=== PATIENT | male | born 1945 | race Caucasian/White ===

== ENCOUNTER 2016-12-10 12:57 | Emergency (ER) | payer OTHER ==
[2016-12-10 13:17] VITALS: BP 139/84; PULSE 70; TEMP 97.5; BMI 26.8
[2016-12-10] MEDS ORDERED: HYDROmorphone HCL 2 MG TABLET PO ONE (13:40)
--- NOTE | 2016-12-10 13:50 | PDOC ---
History of Present Illness - General Chief Complaint: Pain Stated Complaint: RIGHT KNEE & FOOT PAIN Time Seen by Provider: 12/10/16 13:02 History Source: Patient Exam Limitations: No Limitations - History of Present Illness Initial Comments: 12/10/16 13:48 71 yo male with h/o autoimmune arthritis currently on mtx ( recent steroids taper one month ago) here with /co worsening right knee pain. no trauma. no f/c no cp no sob. no rash. states last 2 - 3 days knee pain has become acutely worse to point of being unable to walk, walking wtih crutches. notes right knee and foot pain near ankle. min joint swelling. no hip pain. no new neck or back pain. also c/o tingling sensation right hand index, middle, and thumb. just finished steroid taper one week ago. was treated for lyme disase one year ago. follows with Chris Anthony rheumatologis. Past History - Past Medical History Allergies/Adverse Reactions: Allergies Allergy/AdvReac Type Severity Reaction Status Date / Time No Known Allergies Allergy Verified 12/10/16 13:10 Home Medications: Ambulatory Orders Hydromorphone HCl [Dilaudid] 2 mg PO TID PRN #10 tablet MDD 3 12/10/16 Methotrexate Sodium [Methotrexate] 2.5 mg PO MOTH 12/10/16 Pramipexole Dihydrochloride [Mirapex -] 0.5 mg PO HS 12/10/16 Prednisone 10 mg PO DAILY #8 tablet 12/10/16 Secukinumab [Cosentyx Pen] 150 mg SQ ASDIR 12/10/16 HTN: Yes Other medical history: ARTHRITIS - Immunization History TDAP Vaccination: Yes (12/07/2016) - Psycho/Social/Smoking Cessation Hx Anxiety: No Suicidal Ideation: No Smoking Status: No Smoking History: Never smoked Have you smoked in the past 12 months: No Number of Cigarettes Smoked Daily: 0 Cigars Per Day: 0 Hx Alcohol Use: No Drug/Substance Use Hx: No Substance Use Type: None Review of Systems - Review of Systems Constitutional: No: Chills, Diaphoresis, Fever HEENTM: No: Eye Pain, Blurred Vision Respiratory: No: Orthopnea, Shortness of Breath Cardiac (ROS): No: Chest Pain, Edema : No: Burning Musculoskeletal: Yes: Joint Pain, Joint Swelling, Joint Stiffness. No: Back Pain Integumentary: No: Bruising, Change in Color Neurological: No: Headache, Numbness All Other Systems: Reviewed and Negative *Physical Exam - Vital Signs Last Vital Signs Temp Pulse Resp BP Pulse Ox 97.5 F L 70 15 139/84 99 12/10/16 12:59 12/10/16 12:59 12/10/16 12:59 12/10/16 12:59 12/10/16 12:59 - Physical Exam General Appearance: Yes: Appropriately Dressed. No: Apparent Distress HEENT: positive: EOMI, SARAH Neck: positive: Trachea midline. negative: Tender Respiratory/Chest: positive: Lungs Clear, Normal Breath Sounds Cardiovascular: positive: Regular Rhythm, Regular Rate, S1, S2. negative: Edema , JVD, Murmur Vascular Pulses: Dorsalis-Pedis (R): 2+, Doralis-Pedis (L): 2+ Gastrointestinal/Abdominal: positive: Normal Bowel Sounds, Flat, Soft. negative : Tender Musculoskeletal: positive: Normal Inspection, Decreased Range of Motion. negative: CVA Tenderness, Vertebral Tenderness Extremity: positive: Normal Capillary Refill, Normal Inspection, Normal Range of Motion (right knee with flexion to 45 deg with pain, no effusion, no erythema or warmth. right ankle with lateral TFL tenderness, min swelling. no erythema FROM. 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 differential autoimmune flair, infection, .l right wrist with classic carpal tunnel syndrom. recommend wrist splint for right wrist. followup hand surgeon. will check cbc esr crp cmp to eval for possibility of infection. joint clinically not septic. unable to test for acute lyme and ab already positive. will attempt to discuss with solar consultant regarding meds, and outpt followup, pain contorl. 12/10/16 15:44 d/w covering DR Ramos for pt solar consultant Dr. Chris Anthony [phone]. can see pt this week. recommend re initiating steroids at dose of 10 mg daily , and ok for pain control until then. also accidently spoke with solar consultant dr. Lucia Anthony ( who has seen him in the past and treats his ) who had similar recommendation, happy to see patient if chose to resume care locally. eva dc on prednisone 10 mg , and dilaudid 2 mg prn. #10 *DC/Admit/Observation/Transfer Diagnosis at time of Disposition: Arthralgia - Discharge Dispostion Disposition: HOME Condition at time of disposition: Good Admit: No - Prescriptions Prescriptions: Hydromorphone HCl [Dilaudid] 2 mg PO TID PRN #10 tablet MDD 3 PRN Reason: Pain Prednisone 10 mg PO DAILY #8 tablet - Patient Instructions Printed Discharge Instructions: Arthritis (Alternative Therapy), Psoriatic Arthritis, Carpal Tunnel Syndrome Additional Instructions: take prednisone 10 mg daily until you follow up wtih Dr. Chris Anthony. take dilaudid 2 mg every 8 hours as needed for sever pain. return for fever, worsening swelling or any concerns. you should also wear a velcrox wrist splint on your right wrist to help wtih carpal tunnel syndrome. you can wear at night.
[2016-12-10 14:22] LABS: ALBUMIN 3.6 g/dl (3.5-5.0); ALK PHOS 68 U/L (32-92); BILIRUBIN,TOTAL 0.8 mg/dl (0.2-1.0); CALCIUM 8.3 mg/dl (8.4-10.2); CO2 25 mmol/L (22-28); CREATININE 1.4 mg/dl (0.6-1.3); GLUCOSE,RANDOM 163 mg/dl (74-106); SGOT/AST 23 U/L (10-42); SGPT/ALT 19 U/L (10-40); TOT PROT 5.6 g/dl (6.4-8.3)
[2016-12-10 14:32] LABS: ANION GAP 6 (8-16)
[2016-12-10 14:34] LABS: BASOPHIL 0.4 % (0-2.0); EOSINOPHIL 2.7 % (0-4.5); MCH 30.4 pg (25.7-33.7); MCHC 33.6 g/dl (32.0-35.9); MEAN CELL VOLUME 90.4 fl (80-96); MEAN PLT VOLUME 10.4 fl (7.5-11.1); NEUTROPHILS 69.2 % (42.8-82.8); PLATELET COUNT 159 K/MM3 (134-434); WHITE BLOOD COUNT 11.6 K/mm3 (4.0-10.8)
[2016-12-10] MEDS ORDERED: predniSONE 10 MG TABLET (UD) PO ONE (15:43)
[2016-12-10] MEDS ORDERED: predniSONE 10 MG TABLET (UD) ONE (15:46)
[2016-12-10 16:23] LABS: ERYTHROCYTE SEDIMENTATION RATE 20 mm/hr (0-20)
[2016-12-10 18:41] LABS: C-REACTIVE PROTEIN 1.1 MG/DL (0.00-0.3)
== END 2016-12-10 15:55 | disposition home or self-care (01) ==
LOC: FER 12:57
DX: M25.50 Pain in unspecified joint (principal); I10 Essential (primary) hypertension
CPT/HCPCS: 36415; 80053; 85025; 85651; 86140; 99282-25